=== PATIENT | female | born 1930 | race Caucasian/White ===

== ENCOUNTER 2018-01-10 15:59 | Emergency (ER) | payer MEDICARE, OTHER ==
[~2018-01-10] VITALS: Ht 157.5 cm; Wt 98.0 kg
[~2018-01-10 15:59] MED LIST: BENADRYL 50MG C50 MG OR; FOSAMAX5 MG OR; SEPTRA DS1 TAB OR; SYNTHROID100 MCG PO
[2018-01-10] MEDS ORDERED: PROPRANOLOL80 M1 PO (16:15)
[2018-01-10 17:10] LABS: HEMATOCRIT 41.6 % (37.0-47.0); HEMOGLOBIN 13.2 g/dl (12.0-16.0); IMMATURE GRANULOCYTES 0.3 % (0.0-5.0); MEAN CELL VOLUME 95.6 fL CALC (80.0-100.0); MEAN CORPUSCULAR HGB 30.3 pG CALC (26.0-32.0); MEAN CORPUSCULAR HGB CONC 31.7 g/L CALC (32.0-36.0); NEUT# 3.53 thou/uL (2.00-7.15); RED BLOOD COUNT 4.35 mill/uL (4.20-5.60); RED CELL DISTRI WIDTH 13.2 % (11.5-15.5)
[2018-01-10 17:16] LABS: ALKALINE PHOSPHATASE 129 u/l (38-126); AMYLASE 92 u/l (30-110); ANION GAP 15 (6-22 (CALC)); BILIRUBIN, TOTAL 0.6 mg/dL (0.0-1.4); BUN 23 mg/dL (8-23); BUN/CREATININE RATIO 23 (12-20 (CALC)); CARBON DIOXIDE 25 mmol/l (22-30); CHLORIDE 106 mmol/l (95-108); GFR 52 ML/MIN (>=60 (CALC)); GFR FOR AFR.AMER. > 60 ML/MIN (>=60 (CALC)); LIPASE 179 u/l (23-300); SGOT/AST 44 u/l (9-36); SODIUM 141 mmol/l (137-146); TOTAL PROTEIN 7.4 g/dL (6.3-8.2)
[2018-01-10 17:20] LABS: POTASSIUM 5.1 mmol/l (3.5-5.1)
[2018-01-10 17:27] LABS: MYOGLOBIN 100 ng/mL (0 - 62)
[2018-01-10 18:17] VITALS: BP 170/73
[2018-01-10 18:55] LABS: TSH, 3RD GENERATION 0.57 uIU/mL (0.47 - 4.68)
== END 2018-01-10 18:17 | disposition left against medical advice (07) ==
LOC: ED 15:59 → ED-I 17:49 → ED 18:17
PROVIDERS: Emergency Medicine
DX: R07.9 Chest pain, unspecified (principal); Z91.19 Patient's noncompliance with other medical treatment and regimen

== ENCOUNTER 2020-09-04 13:06 | Emergency (ER) | payer MEDICARE, BC ==
[~2020-09-04] VITALS: Ht 157.5 cm; Wt 98.6 kg
[~2020-09-04 13:06] MED LIST changes: +PROPRANOLOL80 M1 PO
[2020-09-04 14:29] LABS: HEMATOCRIT 37.6 % (37.0-47.0); IMMATURE GRANULOCYTES 0.6 % (0.0-5.0); MEAN CELL VOLUME 95.4 fL CALC (80.0-100.0); MEAN CORPUSCULAR HGB 30.5 pG CALC (26.0-32.0); MEAN CORPUSCULAR HGB CONC 31.9 g/dL CAL (32.0-36.0); NEUT# 3.92 thou/uL (2.00-7.15); RED BLOOD COUNT 3.94 mill/uL (4.20-5.60); RED CELL DISTRI WIDTH 14.2 % (11.5-15.5)
[2020-09-04 14:36] LABS: ALBUMIN 3.7 g/dL (3.2-5.0); ALKALINE PHOSPHATASE 123 u/l (38-126); BUN 18 mg/dL (8-23); BUN/CREATININE RATIO 18 (12-20 (CALC)); CHLORIDE 103 mmol/l (95-108); GFR 52 ML/MIN (>=60 (CALC)); GFR FOR AFR.AMER. > 60 ML/MIN (>=60 (CALC)); LIPASE 151 u/l (23-300); POTASSIUM 4.5 mmol/l (3.5-5.1); SGOT/AST 39 u/l (9-36); SODIUM 136 mmol/l (137-146); TOTAL PROTEIN 7.4 g/dL (6.3-8.2)
[2020-09-04 14:50] LABS: ANION GAP 12 (6-22 (CALC)); BILIRUBIN, TOTAL 0.4 mg/dL (0.0-1.4); CARBON DIOXIDE 26 mmol/l (22-30)
[2020-09-04] MEDS ORDERED: ZOFRAN4 MG/TAB PO (18:43)
[2020-09-04 19:35] VITALS: BP 145/95
== END 2020-09-04 19:35 | disposition home or self-care (01) ==
LOC: ED 13:06
DX: R11.0 Nausea (principal); E03.9 Hypothyroidism, unspecified; Z20.822 Contact with and (suspected) exposure to COVID-19